=== PATIENT | male | born 1995 | race African-American/Black ===

== ENCOUNTER 2022-05-02 07:30 | Emergency (ER) | payer OTHER, SELFPAY ==
[2022-05-02 08:27] LABS: Absolute Lymphocytes (CBC) 0.9 K/uL (0.7-4.9); Hematocrit 44.5 % (39.6-49.0); Lymphocytes % 23.1 % (15.3-44.8); MCV 89.1 fL (80-100); MPV 8.2 fL (7.6-11.3)
--- NOTE | 2022-05-02 08:35 | RAD REPORT ---
EXAM DESCRIPTION: RAD - Chest Single View - 05/02/2022 8:27 am CLINICAL HISTORY: Chest pain COMPARISON: None TECHNIQUE: AP portable chest image was obtained 05/02/2022 8:27 am . FINDINGS: Lungs are clear. Heart and vasculature are normal. No measurable pleural effusion and no p neumothorax. No acute bony abnormality seen. No acute aortic findings suspected. IMPRESSION: No acute cardiopulmonary process.
[2022-05-02 08:42] LABS: Potassium 3.8 mmol/L (3.5-5.1); Troponin High Sensitivity 3.1 pg/mL (<58.9)
--- NOTE | 2022-05-02 09:16 | ER ---
Nurse's Notes [facility] Name: Salomón Lujan Jr Age: 26 yrs Sex: Male : 1995 Arrival Date: 05/02/2022 Time: 07:32 Bed 16 Private MD: Diagnosis: Chest pain, unspecified;Palpitations;Essential (primary) hypertension Presentation: 05/02 07:58 Chief complaint: Patient states: chest pain that radiates to the mid upper back, kr3 shortness of breath x 2 weeks. 07:58 Method Of Arrival: Ambulatory kr3 07:58 Acuity: DALY 3 kr3 08:00 Coronavirus screen: At this time, the client does not indicate any symptoms associated em6 with coronavirus-19. Ebola Screen: Patient negative for fever greater than or equal to 101.5 degrees Fahrenheit, and additional compatible Ebola Virus Disease symptoms. Initial Sepsis Screen: Does the patient meet any 2 criteria? No. Patient's initial sepsis screen is negative. Does the patient have a suspected source of infection? No. Patient's initial sepsis screen is negative. Risk Assessment: Do you want to hurt yourself or someone else? Patient reports no desire to harm self or others. Onset of symptoms was May 01, 2022. Triage Assessment: 07:59 General: Appears in no apparent distress. uncomfortable, Behavior is calm, cooperative, kr3 appropriate for age. Historical: - Allergies: 09:24 No Known Allergies; em6 - Immunization history:: Adult Immunizations unknown. - Family history:: not pertinent. - Social history:: Smoking status: unknown. - Hospitalizations: : No recent hospitalization is reported. Screenin:00 Abuse screen: Denies threats or abuse. Nutritional screening: No deficits noted. em6 Tuberculosis screening: No symptoms or risk factors identified. Fall Risk IV access (20 points). Assessment: 08:00 General: Appears in no apparent distress. comfortable, Behavior is calm, cooperative, em6 appropriate for age. Pain: Complains of pain in chest Pain radiates to back Pain currently is 1 out of 10 on a pain scale. Quality of pain is described as pressure, radiating, Pain began suddenly, Is intermittent. Neuro: Hackett Agitation-Sedation Scale (RASS): 0 - Alert and Calm Level of Consciousness is awake, alert, obeys commands, Oriented to person, place, time, situation. Cardiovascular: Heart tones present Capillary refill < 3 seconds Patient's skin is warm and dry. Rhythm is sinus rhythm. Respiratory: Airway is patent Respiratory effort is even, unlabored, Respiratory pattern is regular, symmetrical, Breath sounds are clear bilaterally. GI: Abdomen is non-distended. : No signs and/or symptoms were reported regarding the genitourinary system. EENT: No signs and/or symptoms were reported regarding the EENT system. Derm: No signs and/or symptoms reported regarding the dermatologic system. Musculoskeletal: Circulation, motion, and sensation intact. Range of motion: intact in all extremities. 09:00 Reassessment: Patient appears in no apparent distress at this time. Patient and/or em6 family updated on plan of care and expected duration. Pain level reassessed. Patient is alert, oriented x 3, equal unlabored respirations, skin warm/dry/pink. Patient states feeling better. Vital Signs: 08:00 BP 155 / 114; Pulse 83; Resp 18; Temp 98.8; Pulse Ox 100% on R/A; kr3 08:51 BP 134 / 95; rn 08:53 BP 134 / 95; Pulse 76; Resp 16; Pulse Ox 97% on R/A; jd3 ED Course: 07:32 Patient arrived in ED. rg4 07:33 Rao Vang MD is Attending Physician. rn 07:38 Arm band placed on Patient placed in an exam room, on a stretcher. ll1 07:59 Triage completed. kr3 08:00 Patient has correct armband on for positive identification. Bed in low position. Call em6 light in reach. Side rails up X 1. transportation inspector on. Pulse ox on. NIBP on. 08:00 No provider procedures requiring assistance completed. Inserted saline lock: in right em6 antecubital area, using aseptic technique. Blood collected. Patient maintains SpO2 saturation greater than 95% on room air. 08:25 Lonnie Azevedo RN is Primary Nurse. jd3 08:29 XRAY Chest (1 view) In Process Unspecified. EDMS 09:37 IV discontinued, intact, bleeding controlled, No redness/swelling at site. Pressure em6 dressing applied. Administered Medications: No medications were administered Medication: 09:25 VIS not applicable for this client. em6 Outcome: 09:16 Discharge ordered by . rn 09:36 Discharged to home ambulatory. em6 09:36 Condition: stable 09:36 Discharge instructions given to patient, Instructed on discharge instructions, follow up and referral plans. Demonstrated understanding of instructions, follow-up care. 09:37 Patient left the ED. em6 Signatures: Dispatcher [employer] EDMS Rao Vang MD MD rn Garcia, Rubi rg4 Lonnie Azevedo RN RN jd3 Roxanne Peralta RN RN ll1 Noreen Berrios RN RN kr3 Alexandra Beckford RN RN em6 Corrections: (The following items were deleted from the chart) 09:24 09:24 Home Meds: None; em6 em6 09:36 08:00 Pain: Complains of pain in chest Pain radiates to back Pain currently is 5 out of em6 10 on a pain scale. Quality of pain is described as pressure, radiating, Pain began suddenly, Is intermittent, em6 09:36 08:00 Neuro: Hackett Agitation-Sedation Scale (RASS): 0 - Alert and Calm Level of em6 Consciousness is awake, alert, obeys commands, Oriented to person, place, time, situation, em6
--- NOTE | 2022-05-02 09:17 | EDPHYS ---
Physician Documentation [facility] Name: Salomón Lujan Jr Age: 26 yrs Sex: Male : 1995 Arrival Date: 05/02/2022 Time: 07:32 Bed 16 Private MD: ED Physician Rao Vang HPI: 05/02 08:22 This 26 yrs old Black Male presents to ER via Ambulatory with complaints of rn Palpitations, Chest Pain, Breathing Difficulty. 08:22 The patient presents with a history of heart racing. Context: The symptoms occur at rn rest. Onset: The symptoms/episode began/occurred 2 week(s) ago. Duration: The patient or guardian reports multiple episodes, that are intermittent. Modifying factors: The symptoms are aggravated by nothing. The symptoms are alleviated by nothing. Associated signs and symptoms: Pertinent positives: anxiety, chest pain, Pertinent negatives: fever, vomiting. Severity of symptoms: At their worst the symptoms were moderate in the emergency department the symptoms have improved. The patient has experienced similar episodes in the past. The patient has not recently seen a physician. Pt reports 2 weeks intermittent chest pain, palpitations. No real pattern. 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 Thinks mother had BP problems at young age but not sure. No UT at young age in family. No drug use. Does report recently cutting down on caffeinated drinks. No trauma. Pain and palpitations not getting worse or better. . Historical: - Allergies: 09:24 No Known Allergies; em6 - Immunization history:: Adult Immunizations unknown. - Family history:: not pertinent. - Social history:: Smoking status: unknown. - Hospitalizations: : No recent hospitalization is reported. ROS: 08:22 Constitutional: Negative for fever, chills, and weight loss, Eyes: Negative for injury, rn pain, redness, and discharge, Neck: Negative for injury, pain, and swelling, Cardiovascular: Negative for edema Respiratory: Negative for shortness of breath, cough, wheezing, and pleuritic chest pain, Abdomen/GI: Negative for abdominal pain, nausea, vomiting, diarrhea, and constipation, Back: Negative for injury and pain, : Negative for injury, bleeding, discharge, and swelling, MS/Extremity: Negative for injury and deformity, Skin: Negative for injury, rash, and discoloration, Neuro: Negative for headache, weakness, numbness, tingling, and seizure. Exam: 08:07 ECG was reviewed by the Attending Physician. rn 08:22 Constitutional: This is a well developed, well nourished patient who is awake, alert, rn and in no acute distress. Ambulatory to room without difficulty or distress Head/Face: Normocephalic, atraumatic. Eyes: Pupils equal round and reactive to light, extra-ocular motions intact. Lids and lashes normal. Conjunctiva and sclera are non-icteric and not injected. Cornea within normal limits. Periorbital areas with no swelling, redness, or edema. Cardiovascular: Regular rate and rhythm. No pulse deficits. Respiratory: No increased work of breathing, no retractions or nasal flaring. Abdomen/GI: Soft, non-tender, no masses Skin: Warm, dry MS/ Extremity: Pulses equal, no cyanosis. Neuro: Awake and alert, GCS 15, oriented to person, place, time, and situation. Cranial nerves II-XII grossly intact. Motor strength 5/5 in all extremities. Sensory grossly intact. Cerebellar exam normal. Normal gait. Vital Signs: 08:00 BP 155 / 114; Pulse 83; Resp 18; Temp 98.8; Pulse Ox 100% on R/A; kr3 08:51 BP 134 / 95; rn 08:53 BP 134 / 95; Pulse 76; Resp 16; Pulse Ox 97% on R/A; jd3 MDM: 07:33 Patient medically screened. rn 09:15 Data reviewed: vital signs, nurses notes, lab test result(s), EKG, radiologic studies, rn plain films, and as a result, I will discharge patient. Counseling: I had a detailed discussion with the patient and/or guardian regarding: the historical points, exam findings, and any diagnostic results supporting the discharge/admit diagnosis, lab results, radiology results, the need for outpatient follow up, to return to the emergency department if symptoms worsen or persist or if there are any questions or concerns that arise at home. Special discussion: I discussed with the patient/guardian in detail that at this point there is no indication for admission to the hospital. It is understood, however, that if the symptoms persist or worsen the patient needs to return immediately for re-evaluation. Based on the history and exam findings, there is no indication for further emergent testing or inpatient evaluation. I discussed with the patient/guardian the need to see the primary care provider for further evaluation of the symptoms. 09:15 Counseling: I had a detailed discussion with the patient and/or guardian regarding: the rn presence of at least one elevated blood pressure reading (>120/80) during this emergency department visit. Special discussion: I have referred the patient to see his PCP for further evaluation of high blood pressure. 05/02 07:50 Order name: Basic Metabolic Panel; Complete Time: 08:55 rn 05/02 07:50 Order name: CBC with Diff; Complete Time: 08:36 rn 05/02 07:50 Order name: D-Dimer; Complete Time: 09:07 rn 05/02 07:50 Order name: NT PRO-BNP; Complete Time: 08:55 rn 05/02 07:50 Order name: Troponin HS; Complete Time: 08:55 rn 05/02 07:50 Order name: XRAY Chest (1 view); Complete Time: 08:36 rn 05/02 07:50 Order name: EKG; Complete Time: 07:51 rn 05/02 07:50 Order name: Cardiac monitoring; Complete Time: 07:55 rn 05/02 07:50 Order name: EKG - Nurse/Tech; Complete Time: 07:55 rn 05/02 07:50 Order name: IV Saline Lock; Complete Time: 08:25 rn 05/02 07:50 Order name: Labs collected and sent; Complete Time: 08:25 rn 05/02 07:50 Order name: O2 Per Protocol; Complete Time: 08:25 rn 05/02 07:50 Order name: O2 Sat Monitoring; Complete Time: 08:25 rn EC:07 Rate is 76 beats/min. Rhythm is regular. QRS [place] is Normal. SD interval is normal. QRS rn interval is normal. QT interval is normal. No Q waves. T waves are Normal. No ST changes noted. Clinical impression: NSR w/ Non-specific ST/T Changes. Interpreted by me. Reviewed by me. Administered Medications: No medications were administered Disposition Summary: 05/02/22 09:16 Discharge Ordered Location: Home rn Problem: new rn Symptoms: have improved rn Condition: Stable rn Diagnosis - Chest pain, unspecified rn - Palpitations rn - Essential (primary) hypertension rn Followup: rn - With: Private Physician - When: As needed - Reason: Recheck today's complaints, Re-evaluation by your physician Discharge Instructions: - Discharge Summary Sheet rn - Nonspecific Chest Pain, Adult rn - Hypertension, Adult rn - Palpitations rn Forms: - Medication Reconciliation Form rn - Thank You Letter rn - Antibiotic rn recovery - Prescription Opioid Use rn - Work release form em6 Signatures: Dispatcher [employer] EDRao George MD MD rn Martinez, Erika, RN RN em6 Corrections: (The following items were deleted from the chart) 09:24 09:24 Home Meds: None; em6 em6
[2022-05-02 10:29] VITALS: TEMP 98.8
[2022-05-02 10:30] VITALS: BP 134/95
[2022-05-02 10:33] VITALS: O2SAT 97
--- NOTE | 2022-05-03 12:51 | EKG ---
Test Date: 2022-05-02 Test Time: 07:49:10 Staff [employer]: MEASUREMENT RESULTS: Intervals: Rate: 76 SC: 150 QRSD: 96 QT: 364 QTc: 409 [place]: P: 72 SC: 150 QRS: 59 T: 52 INTERPRETIVE STATEMENTS: Normal sinus rhythm ST elevation, probably due to early repolarization Borderline ECG Compared to ECG 12/14/2015 15:51:48 Early repolarization now present ST (T wave) deviation still present Electronically Signed On 05-03-22 12:49:46 CDT by Reji Gordon
== END 2022-05-02 09:37 | disposition home or self-care (01) ==
LOC: ER 07:30
DX: R07.9 Chest pain, unspecified (principal); R00.2 Palpitations; I10 Essential (primary) hypertension
CPT/HCPCS: 36415; 71045; 80048; 83880; 84484; 85025; 85379; 93005; 99285